=== PATIENT | female | born 1990 ===

== ENCOUNTER → 2020-06-09 17:00 | Outpatient (CLI) | payer OTHER | END | disposition home or self-care (01) | LOC: PPH VACUNA 17:00 | DX: Z23 Encounter for immunization (principal) ==

== ENCOUNTER 2023-01-02 10:37 | Outpatient (CLI) | payer OTHER | END 2023-01-02 10:40 | disposition home or self-care (01) | LOC: SONOGRAMA 10:37 | PROVIDERS: ATTEND Pathology Anatomic Pathology & Clinical Pathology | DX: C73 Malignant neoplasm of thyroid gland (principal) ==